=== PATIENT | female | born 1990 | race Caucasian/White ===

== ENCOUNTER 2019-11-12 15:44 | Emergency (ER) | payer MEDICAID ==
[~2019-11-12] VITALS: Ht 170.2 cm; Wt 72.7 kg
[2019-11-12 16:26] VITALS: TEMP 98.1
[2019-11-12] MEDS ORDERED: ZOLOFT 25MG25 MG PO (16:48)
[2019-11-12 17:30] VITALS: PULSE 135
== END 2019-11-12 17:35 | disposition home or self-care (01) ==
LOC: COL.ER 15:44
DX: J06.9 Acute upper respiratory infection, unspecified (principal); F41.9 Anxiety disorder, unspecified; F17.210 Nicotine dependence, cigarettes, uncomplicated

== ENCOUNTER 2020-06-01 08:45 | Emergency (ER) | payer MEDICAID ==
[~2020-06-01] VITALS: Ht 170.2 cm; Wt 77.3 kg
[~2020-06-01 08:45] MED LIST: ZOLOFT 25MG25 MG PO
[2020-06-01 08:49] VITALS: TEMP 98
[2020-06-01 09:18] LABS: COLLECTION METHOD CLEAN CATCH
[2020-06-01 09:28] LABS: BASO % 0.6 % (0.0-2.0); EOS # 0.2 (0.0-0.7); EOS % 2.2 % (0-4.0); GRAN # 4.2 (1.4-6.5); GRAN % 58.7 % (42.2-75.2); HEMATOCRIT 42.4 % (37.0-47.0); HEMOGLOBIN 14.5 g/dl (12.5-16.0); LYMPH # 2.4 (1.2-3.4); LYMPH % 33.5 % (20.0-51.0); MEAN CELL VOLUME 89 fl (80.0-100.0); MEAN CORPUSCULAR HEMOGLOBIN 30 pg (27.0-31.0); MEAN CORPUSCULAR HGB CONC 34 g/dl (33.0-37.0); MEAN PLATELET VOLUME 9.1 fl (7.4-10.4); MONO # 0.3 (0.1-0.6); MONO % 4.7 % (1.7-9.3); PLATELET COUNT 239 K/mm3 (130-400); RED BLOOD COUNT 4.79 M/mm3 (4.10-5.30); REDCELL DISTRIBUTION WIDTH-CV 12.4 % (11.5-14.5)
[2020-06-01 09:33] LABS: ALBUMIN 4.4 gm/dL (3.5-5.0); BILIRUBIN,TOTAL 0.9 mg/dL (0.0-1.0); C-REACTIVE PROTEIN 0.6 mg/dL (0.0-0.9); CALCIUM 9.3 mg/dL (8.4-10.2); CREATININE, serum 0.76 (0.52-1.25); TOTAL PROTEIN 7.8 gm/dL (6.4-8.2)
[2020-06-01 09:35] LABS: PH 6 (5-8); URINE APPEARANCE Hazy; URINE BACTERIA Rare /hpf; URINE BILIRUBIN Negative (NEGATIVE); URINE BLOOD 1+ (NEGATIVE); URINE COLOR Straw; URINE GLUCOSE Negative (NEGATIVE); URINE KETONE Negative (NEGATIVE); URINE LEUKOCYTE ESTERASE Negative (NEGATIVE); URINE NITRATE Negative (NEGATIVE); URINE PROTEIN(semi-quant) Negative (NEGATIVE); URINE UROBILINOGEN Negative (NEGATIVE)
[2020-06-01] MEDS ORDERED: BENTYL 20MG20 MG/TAB PO (09:58)
[2020-06-01] MEDS ORDERED: ZOFRAN ODT4 MG PO (09:58)
[2020-06-01 10:11] VITALS: BP 106/71; PULSE 67
== END 2020-06-01 10:18 | disposition home or self-care (01) ==
LOC: COL.ER 08:45
PROVIDERS: Physician Assistant
DX: R10.30 Lower abdominal pain, unspecified (principal); R19.7 Diarrhea, unspecified; F41.9 Anxiety disorder, unspecified
CPT/HCPCS: J2405; J7030

== ENCOUNTER 2022-12-30 11:21 | Emergency (ER) | payer MEDICAID ==
[~2022-12-30] VITALS: Ht 170.2 cm; Wt 86.4 kg
[~2022-12-30 11:21] MED LIST changes: +BENTYL 20MG20 MG/TAB PO; +ZOFRAN ODT4 MG PO
[2022-12-30 11:37] VITALS: TEMP 97.8
[2022-12-30 12:04] LABS: BASO # 0.1 K/mm3 (0.0-0.2); BASO % 0.4 % (0.0-2.0); EOS # 0.1 K/mm3 (0.0-0.7); GRAN # 8.6 K/mm3 (1.4-6.5); GRAN % 71.9 % (42.2-75.2); HEMATOCRIT 44.7 % (37.0-47.0); HEMOGLOBIN 15.1 g/dl (12.5-16.0); LYMPH # 2.6 K/mm3 (1.2-3.4); LYMPH % 21.9 % (20.0-51.0); MEAN CELL VOLUME 87 fl (80.0-100.0); MEAN CORPUSCULAR HEMOGLOBIN 29 pg (27-31); MEAN CORPUSCULAR HGB CONC 34 g/dl (33.0-37.0); MONO # 0.5 K/mm3 (0.1-0.6); MONO % 4.5 % (1.7-9.3); PLATELET COUNT 267 K/mm3 (130-400); RED BLOOD COUNT 5.14 M/mm3 (4.10-5.30); REDCELL DISTRIBUTION WIDTH-CV 12.6 % (11.5-14.5)
[2022-12-30 12:18] LABS: ALBUMIN 4.3 gm/dL (3.5-5.0); CALCIUM 9.3 mg/dL (8.4-10.2); CREATININE, serum 0.77 mg/dL (0.57-1.11); TOTAL PROTEIN 8.2 gm/dL (6.2-8.1)
[2022-12-30 13:03] LABS: POTASSIUM 4.4 mmol/L (3.5-4.5)
[2022-12-30 13:24] VITALS: BP 119/79; PULSE 98
== END 2022-12-30 13:25 | disposition home or self-care (01) ==
LOC: COL.ER 11:21
PROVIDERS: Nurse Practitioner Primary Care
DX: R51.9 Headache, unspecified (principal); R42 Dizziness and giddiness; R11.0 Nausea; F17.290 Nicotine dependence, other tobacco product, uncomplicated
CPT/HCPCS: J0780; J1200; J1885

== ENCOUNTER 2023-12-01 16:03 | Emergency (ER) | payer MEDICAID ==
[~2023-12-01] VITALS: Ht 170.2 cm; Wt 81.8 kg
[2023-12-01 16:15] VITALS: TEMP 98.7
[2023-12-01 17:02] LABS: BASO # 0.1 K/mm3 (0.0-0.2); BASO % 0.6 % (0.0-2.0); EOS # 0.2 K/mm3 (0.0-0.7); EOS % 1.7 % (0.0-4.0); GRAN # 6.2 K/mm3 (1.4-6.5); GRAN % 57.3 % (42.2-75.2); HEMATOCRIT 43.5 % (37.0-47.0); HEMOGLOBIN 15.2 g/dl (12.5-16.0); LYMPH # 3.7 K/mm3 (1.2-3.4); LYMPH % 34.5 % (20.0-51.0); MEAN CELL VOLUME 87 fl (80.0-100.0); MEAN CORPUSCULAR HEMOGLOBIN 30 pg (27-31); MEAN CORPUSCULAR HGB CONC 35 g/dl (33.0-37.0); MEAN PLATELET VOLUME 8.6 fl (7.4-10.4); MONO # 0.6 K/mm3 (0.1-0.6); MONO % 5.2 % (1.7-9.3); PLATELET COUNT 277 K/mm3 (130-400)
[2023-12-01 17:13] LABS: ALANINE AMINOTRANSFERASE 20 U/L (0-55); ALBUMIN 4.1 gm/dL (3.5-5.0); ALKALINE PHOSPHATASE 40 U/L (40-150); ANION GAP 9 mmol/L (7-16); AST,SGOT 22 U/L (5-34); BILIRUBIN,TOTAL 0.5 mg/dL (0.2-1.2); BLOOD UREA NITROGEN 10 mg/dL (7-19); CALCIUM 9.3 mg/dL (8.4-10.2); CARBON DIOXIDE 21 mmol/L (22-29); CHLORIDE 108 mmol/L (98-107); CREATININE, serum 0.75 mg/dL (0.57-1.11); GLUCOSE 92 mg/dL (70-99); SODIUM 138 mmol/L (136-145); TOTAL PROTEIN 7.6 gm/dL (6.2-8.1)
[2023-12-01 17:24] LABS: TROPONIN-I < 0.010 ng/mL (0.00-0.033)
[2023-12-01 18:29] LABS: COLLECTION METHOD CLEAN CATCH
[2023-12-01 18:43] LABS: MUCOUS Present (NOT PRESENT); SQUAMOUS EPITHELIAL 0-2 /hpf (0-10); URINE APPEARANCE Clear (CLEAR/HAZY); URINE BACTERIA Rare /hpf (NONE SEEN); URINE BLOOD TRACE-INTACT (NEGATIVE); URINE COLOR Yellow (YELLOW); URINE GLUCOSE Negative (NEGATIVE); URINE KETONE Negative (NEGATIVE); URINE NITRATE Negative (NEGATIVE); URINE PROTEIN(semi-quant) Negative (NEGATIVE); URINE RBC 0-2 /hpf (0-2); URINE UROBILINOGEN 0.2 E.U/dL (0.2-1.0)
[2023-12-01 19:22] VITALS: BP 117/81; PULSE 88
== END 2023-12-01 19:29 | disposition home or self-care (01) ==
LOC: COL.ER 16:03
PROVIDERS: Physician Assistant
DX: R07.89 Other chest pain (principal)
CPT/HCPCS: J7030

== ENCOUNTER 2024-07-28 10:29 | Emergency (ER) | payer SELFPAY ==
[~2024-07-28] VITALS: Ht 170.2 cm; Wt 80.5 kg
[2024-07-28 10:50] VITALS: TEMP 98.6
[2024-07-28] MEDS ORDERED: NS 1,000 ML IV ONE (11:30)
[2024-07-28] MEDS ORDERED: Ondansetron 4 MG/2 ML VIAL IV ONE (11:30)
[2024-07-28] MEDS ORDERED: Iohexol 300 - 100 ML VIAL IV ONE (11:46)
[2024-07-28] MEDS ORDERED: NS 100 ML IV ONE (11:47)
[2024-07-28 11:49] LABS: BASO # 0.1 K/mm3 (0.0-0.2); BASO % 0.4 % (0.0-2.0); EOS # 0.1 K/mm3 (0.0-0.7); EOS % 0.6 % (0.0-4.0); GRAN # 8.3 K/mm3 (1.4-6.5); GRAN % 72.4 % (42.2-75.2); HEMATOCRIT 45.6 % (37.0-47.0); HEMOGLOBIN 15.4 g/dl (12.5-16.0); LYMPH # 2.5 K/mm3 (1.2-3.4); LYMPH % 21.6 % (20.0-51.0); MEAN CELL VOLUME 89 fl (80.0-100.0); MEAN CORPUSCULAR HEMOGLOBIN 30 pg (27-31); MEAN CORPUSCULAR HGB CONC 34 g/dl (33.0-37.0); MONO # 0.5 K/mm3 (0.1-0.6); MONO % 4.6 % (1.7-9.3); PLATELET COUNT 261 K/mm3 (130-400); RED BLOOD COUNT 5.13 M/mm3 (4.10-5.30); REDCELL DISTRIBUTION WIDTH-CV 12.6 % (11.5-14.5)
[2024-07-28 11:59] LABS: ALBUMIN 4.2 g/dL (3.5-5.0); BILIRUBIN,TOTAL 1.1 mg/dL (0.2-1.2); CALCIUM 9.5 mg/dL (8.4-10.2); CREATININE, serum 0.84 mg/dL (0.57-1.11); POTASSIUM 3.9 mEq/L (3.5-4.5); TOTAL PROTEIN 7.7 g/dl (6.2-8.1)
[2024-07-28 12:42] VITALS: BP 116/85; PULSE 92
== END 2024-07-28 12:42 | disposition home or self-care (01) ==
LOC: COL.ER 10:29
PROVIDERS: Physician Assistant
DX: R10.31 Right lower quadrant pain (principal); R11.0 Nausea
CPT/HCPCS: J2405; J7030; Q9967